=== PATIENT | male | born 1965 | race Caucasian/White ===

== ENCOUNTER 2019-05-05 20:17 | Emergency (ER) | payer MEDICARE ==
[~2019-05-05] VITALS: Ht 170.2 cm; Wt 104.3 kg
[2019-05-05] MEDS ORDERED: EPINEPHrine HCL 1 MG/1 ML AMP SC ONE (21:45)
[2019-05-05] MEDS ORDERED: FAMOTIDINE (10MG/ML) 2ML VL IV ONE (21:45)
[2019-05-05] MEDS ORDERED: methylPREDNISolone SOD SUCC 125 MG/2 ML VL IV ONE (21:45)
[2019-05-05] MEDS ORDERED: SODIUM CHLORIDE 0.9% 1,000 ML IV ONE (21:45)
[2019-05-05 23:09] VITALS: BP 103/68
== END 2019-05-05 23:21 | disposition home or self-care (01) ==
LOC: ER 20:22
DX: L23.7 Allergic contact dermatitis due to plants, except food (principal); T78.40XA Allergy, unspecified, initial encounter; F17.210 Nicotine dependence, cigarettes, uncomplicated; X58.XXXA Exposure to other specified factors, initial encounter
CPT/HCPCS: 96372; 96374; 96375; 99283; J0171; J2930; J3490; J7030